=== PATIENT | male | born 1985 | race Caucasian/White ===

== ENCOUNTER 2017-08-09 13:13 | Emergency (ER) | payer SELFPAY ==
[~2017-08-09] VITALS: Ht 188 cm; Wt 100.0 kg
[2017-08-09] MEDS ORDERED: MOTRIN400 MG PO (15:19)
[2017-08-09 15:20] VITALS: BP 153/78
== END 2017-08-09 15:36 | disposition home or self-care (01) | DRG 556 ==
LOC: ED 13:13
PROC: 2W39X1Z Immobilization of Left Upper Extremity using Splint (ICD-10-PCS; principal; 2017-08-09)
DX: M25.522 Pain in left elbow (principal); V18.0XXA Pedal cycle driver injured in noncollision transport accident in nontraffic accident, initial encounter; Y93.55 Activity, bike riding

== ENCOUNTER 2020-03-19 00:39 | Emergency (ER) | payer MEDICAID ==
[~2020-03-19] VITALS: Ht 188 cm; Wt 86.3 kg
[~2020-03-19 00:39] MED LIST: MOTRIN400 MG PO
[2020-03-19] MEDS ORDERED: ULTRAM50 MG PO (02:19)
[2020-03-19 03:00] VITALS: BP 140/74
== END 2020-03-19 03:00 | disposition home or self-care (01) ==
LOC: ED 00:39
DX: S60.812A Abrasion of left wrist, initial encounter (principal); S50.312A Abrasion of left elbow, initial encounter; S00.93XA Contusion of unspecified part of head, initial encounter; F17.200 Nicotine dependence, unspecified, uncomplicated; V13.4XXA Pedal cycle driver injured in collision with car, pick-up truck or van in traffic accident, initial encounter

== ENCOUNTER 2020-08-04 11:08 | Inpatient (IN) | payer MEDICAID ==
[~2020-08-04] VITALS: Ht 188 cm; Wt 99.8 kg
[~2020-08-04 11:08] MED LIST changes: +ULTRAM50 MG PO
[2020-08-04 11:47] LABS: HEMATOCRIT 46.4 % (39.0-50.0); HEMOGLOBIN 14.8 g/dl (14.0-18.0); IMMATURE GRANULOCYTES 0.3 % (0.0-5.0); MEAN CELL VOLUME 92.8 fL CALC (80.0-100.0); MEAN CORPUSCULAR HGB 29.6 pG CALC (26.0-32.0); MEAN CORPUSCULAR HGB CONC 31.9 g/dL CAL (32.0-36.0); NEUT# 6.65 thou/uL (1.82-7.42); RED CELL DISTRI WIDTH 14.6 % (11.5-15.5)
[2020-08-04 12:00] LABS: ALBUMIN 4.4 g/dL (3.2-5.0); ALKALINE PHOSPHATASE 76 u/l (38-126); ANION GAP 13 (6-22 (CALC)); BILIRUBIN, TOTAL 0.4 mg/dL (0.0-1.4); BUN 12 mg/dL (9-20); BUN/CREATININE RATIO 18 (12-20 (CALC)); CARBON DIOXIDE 27 mmol/l (22-30); CHLORIDE 103 mmol/l (95-108); CREATININE 0.7 mg/dL (0.7-1.3); GFR > 60 ML/MIN (>=60 (CALC)); GFR FOR AFR.AMER. > 60 ML/MIN (>=60 (CALC)); POTASSIUM 4.9 mmol/l (3.5-5.1); SGOT/AST 25 u/l (17-59); SODIUM 138 mmol/l (137-146); TOTAL PROTEIN 7.7 g/dL (6.3-8.2)
[2020-08-04 12:07] LABS: ACT PARTIAL THROMBO TIME 26.6 SECONDS (20.0-32.5); PROTHROMBIN TIME 9.7 SECONDS (9.0-12.5)
[2020-08-04] MEDS ORDERED: NEURONTIN100 MG PO (14:18)
[2020-08-04] MEDS ORDERED: SERTRALINE25 MG PO (14:19)
[2020-08-04] MEDS ORDERED: NEURONTIN600 MG PO (14:19)
[2020-08-04] MEDS ORDERED: KLONOPIN0.5 MG PO (14:20)
[2020-08-04 19:05] VITALS: BP 126/72
[2020-08-04 19:32] VITALS: BP 116/66
[2020-08-05] VITALS (10 sets, daily range): BP systolic 117–141; BP diastolic 58–81
[2020-08-05 05:59] LABS: HEMATOCRIT 44.1 % (39.0-50.0); HEMOGLOBIN 13.5 g/dl (14.0-18.0); MEAN CELL VOLUME 95.9 fL CALC (80.0-100.0); MEAN CORPUSCULAR HGB 29.3 pG CALC (26.0-32.0); MEAN CORPUSCULAR HGB CONC 30.6 g/dL CAL (32.0-36.0); RED BLOOD COUNT 4.6 mill/uL (4.70-6.10); RED CELL DISTRI WIDTH 14.6 % (11.5-15.5)
[2020-08-05 06:16] LABS: ANION GAP 15 (6-22 (CALC)); BUN 12 mg/dL (9-20); BUN/CREATININE RATIO 15 (12-20 (CALC)); CALCULATED LDLCHOLESTEROL 59 mg/dL (62-129 (CALC)); CARBON DIOXIDE 24 mmol/l (22-30); CHLORIDE 105 mmol/l (95-108); CHOLESTEROL HDL RATIO 5.6 (<4.4 (CALC)); CREATININE 0.8 mg/dL (0.7-1.3); GFR > 60 ML/MIN (>=60 (CALC)); GFR FOR AFR.AMER. > 60 ML/MIN (>=60 (CALC)); HDL CHOLESTEROL 22 mg/dL (>=40); POTASSIUM 5.1 mmol/l (3.5-5.1); SODIUM 139 mmol/l (137-146); TOTAL CHOLESTEROL 124 mg/dl (0-199); TOTAL TRIGLYCERIDES 215 mg/dl (30-149); VLDL CHOLESTROL 43 mg/dl (5-56 (CALC))
[2020-08-06 04:00] VITALS: BP 114/54
[2020-08-06 06:12] LABS: HEMATOCRIT 42.5 % (39.0-50.0); HEMOGLOBIN 13.4 g/dl (14.0-18.0); MEAN CELL VOLUME 93.8 fL CALC (80.0-100.0); MEAN CORPUSCULAR HGB 29.6 pG CALC (26.0-32.0); MEAN CORPUSCULAR HGB CONC 31.5 g/dL CAL (32.0-36.0); RED BLOOD COUNT 4.53 mill/uL (4.70-6.10); RED CELL DISTRI WIDTH 14.2 % (11.5-15.5)
[2020-08-06 06:48] LABS: ANION GAP 11 (6-22 (CALC)); BUN 14 mg/dL (9-20); BUN/CREATININE RATIO 15 (12-20 (CALC)); CHLORIDE 100 mmol/l (95-108); CREATININE 0.9 mg/dL (0.7-1.3); GFR > 60 ML/MIN (>=60 (CALC)); GFR FOR AFR.AMER. > 60 ML/MIN (>=60 (CALC)); POTASSIUM 4.4 mmol/l (3.5-5.1); SODIUM 136 mmol/l (137-146)
[2020-08-06 06:52] LABS: CARBON DIOXIDE 29 mmol/l (22-30)
[2020-08-06 08:37] VITALS: BP 119/66
[2020-08-06 15:17] VITALS: BP 135/75
[2020-08-06 19:30] VITALS: BP 133/73
[2020-08-07 04:22] VITALS: BP 131/66
[2020-08-07 05:06] LABS: HEMATOCRIT 41.6 % (39.0-50.0); HEMOGLOBIN 13.2 g/dl (14.0-18.0); MEAN CELL VOLUME 92.2 fL CALC (80.0-100.0); MEAN CORPUSCULAR HGB 29.3 pG CALC (26.0-32.0); MEAN CORPUSCULAR HGB CONC 31.7 g/dL CAL (32.0-36.0); RED BLOOD COUNT 4.51 mill/uL (4.70-6.10); RED CELL DISTRI WIDTH 14.3 % (11.5-15.5)
[2020-08-07 05:31] LABS: ANION GAP 12 (6-22 (CALC)); BUN 10 mg/dL (9-20); BUN/CREATININE RATIO 14 (12-20 (CALC)); CARBON DIOXIDE 28 mmol/l (22-30); CHLORIDE 100 mmol/l (95-108); CREATININE 0.7 mg/dL (0.7-1.3); GFR > 60 ML/MIN (>=60 (CALC)); GFR FOR AFR.AMER. > 60 ML/MIN (>=60 (CALC)); POTASSIUM 4.2 mmol/l (3.5-5.1); SODIUM 135 mmol/l (137-146)
[2020-08-07 08:01] VITALS: BP 117/69
[2020-08-07 11:00] VITALS: BP 99/55
[2020-08-07 15:00] VITALS: BP 99/55
[2020-08-07 17:19] VITALS: BP 128/70
[2020-08-07 20:00] VITALS: BP 133/67
[2020-08-08 04:00] VITALS: BP 135/70
[2020-08-08 06:54] VITALS: BP 127/68
[2020-08-08 15:25] VITALS: BP 114/60
[2020-08-08 21:00] VITALS: BP 118/64
[2020-08-09 04:57] VITALS: BP 158/75
[2020-08-09 05:30] LABS: HEMATOCRIT 41.8 % (39.0-50.0); HEMOGLOBIN 13.1 g/dl (14.0-18.0); MEAN CELL VOLUME 93.7 fL CALC (80.0-100.0); MEAN CORPUSCULAR HGB 29.4 pG CALC (26.0-32.0); MEAN CORPUSCULAR HGB CONC 31.3 g/dL CAL (32.0-36.0); RED BLOOD COUNT 4.46 mill/uL (4.70-6.10)
[2020-08-09 05:58] LABS: ANION GAP 12 (6-22 (CALC)); BUN 19 mg/dL (9-20); BUN/CREATININE RATIO 23 (12-20 (CALC)); CARBON DIOXIDE 30 mmol/l (22-30); CHLORIDE 99 mmol/l (95-108); CREATININE 0.8 mg/dL (0.7-1.3); GFR > 60 ML/MIN (>=60 (CALC)); GFR FOR AFR.AMER. > 60 ML/MIN (>=60 (CALC)); POTASSIUM 4.7 mmol/l (3.5-5.1); SODIUM 136 mmol/l (137-146)
[2020-08-09 07:31] VITALS: BP 108/60
[2020-08-09 14:43] VITALS: BP 111/66
[2020-08-09 19:37] VITALS: BP 130/71
[2020-08-10 05:04] VITALS: BP 128/77
[2020-08-10 07:46] VITALS: BP 100/57
[2020-08-10 15:00] VITALS: BP 115/59
[2020-08-10 19:00] VITALS: BP 111/59
[2020-08-11 04:00] VITALS: BP 129/75
[2020-08-11 05:09] LABS: HEMATOCRIT 40.8 % (39.0-50.0); MEAN CELL VOLUME 91.9 fL CALC (80.0-100.0); MEAN CORPUSCULAR HGB 29.3 pG CALC (26.0-32.0); MEAN CORPUSCULAR HGB CONC 31.9 g/dL CAL (32.0-36.0); RED BLOOD COUNT 4.44 mill/uL (4.70-6.10); RED CELL DISTRI WIDTH 13.5 % (11.5-15.5)
[2020-08-11 05:33] LABS: ANION GAP 13 (6-22 (CALC)); BUN 17 mg/dL (9-20); BUN/CREATININE RATIO 23 (12-20 (CALC)); CARBON DIOXIDE 28 mmol/l (22-30); CHLORIDE 100 mmol/l (95-108); CREATININE 0.7 mg/dL (0.7-1.3); GFR > 60 ML/MIN (>=60 (CALC)); GFR FOR AFR.AMER. > 60 ML/MIN (>=60 (CALC)); POTASSIUM 4.4 mmol/l (3.5-5.1); SODIUM 137 mmol/l (137-146)
[2020-08-11 07:27] VITALS: BP 128/70
[2020-08-11] MEDS ORDERED: AMOX/K CLAV875 M1 PO (13:51)
== END 2020-08-11 14:04 | disposition left against medical advice (07) | DRG 571 ==
LOC: ED 11:08 → ED-I 12:45 → ED 12:59 → MS2 13:00
PROVIDERS: Nurse Practitioner; Student in an Organized Health Care Education/Training Program; ADMIT Internal Medicine; ATTEND Internal Medicine
PROC: 0JBP0ZZ Excision of Left Lower Leg Subcutaneous Tissue and Fascia, Open Approach (ICD-10-PCS; principal; 2020-08-04)
PROC: 0JBN0ZZ Excision of Right Lower Leg Subcutaneous Tissue and Fascia, Open Approach (ICD-10-PCS; 2020-08-04)
PROC: 0Y3H0ZZ Control Bleeding in Right Lower Leg, Open Approach (ICD-10-PCS; 2020-08-05)
PROC: 3E02340 Introduction of Influenza Vaccine into Muscle, Percutaneous Approach (ICD-10-PCS; 2020-08-05)
PROC: 3E0234Z Introduction of Serum, Toxoid and Vaccine into Muscle, Percutaneous Approach (ICD-10-PCS; 2020-08-05)
DX: L02.415 Cutaneous abscess of right lower limb (principal); L76.21 Postprocedural hemorrhage of skin and subcutaneous tissue following a dermatologic procedure; L03.115 Cellulitis of right lower limb; L02.416 Cutaneous abscess of left lower limb; F15.10 Other stimulant abuse, uncomplicated; F31.9 Bipolar disorder, unspecified; G62.9 Polyneuropathy, unspecified; F20.9 Schizophrenia, unspecified; M54.9 Dorsalgia, unspecified; G89.29 Other chronic pain; F17.210 Nicotine dependence, cigarettes, uncomplicated; B96.89 Other specified bacterial agents as the cause of diseases classified elsewhere; B95.61 Methicillin susceptible Staphylococcus aureus infection as the cause of diseases classified elsewhere; Y83.8 Other surgical procedures as the cause of abnormal reaction of the patient, or of later complication, without mention of misadventure at the time of the procedure; Z23 Encounter for immunization; Z20.822 Contact with and (suspected) exposure to COVID-19
CPT/HCPCS: J1650; J3370; Q3014

== ENCOUNTER 2020-09-07 01:54 | Observation (INO) | payer MEDICAID ==
[~2020-09-07] VITALS: Ht 188 cm; Wt 81.0 kg
[~2020-09-07 01:54] MED LIST changes: +AMOX/K CLAV875 M1 PO; +KLONOPIN0.5 MG PO; +NEURONTIN100 MG PO; +NEURONTIN600 MG PO; +SERTRALINE25 MG PO
--- NOTE | 2020-09-07 01:56 | NUR ---
ARRIVED VIA [facility] WITH LARGE BACKPACK. [place] WRAP/DRESSING TO RIGHT LOWER LEG. RIGHT MEDIAL LOWER LEG HAS A 1 1/2 X 4 INCH GRANULATED AREA WITH FRESH TISSUE. ON BACK OF LEG LEG AND SMALLER AREA OF GRANULATION OF 1X1 INCH. HAS SEVERAL OTHER SMALL AREAS OF WHAT APPEARS TO BE OLD HEALED LAZAR.
[2020-09-07 02:29] LABS: HEMATOCRIT 40.6 % (39.0-50.0); IMMATURE GRANULOCYTES 0.3 % (0.0-5.0); MEAN CELL VOLUME 91.9 fL CALC (80.0-100.0); MEAN CORPUSCULAR HGB 29.4 pG CALC (26.0-32.0); NEUT# 7.19 thou/uL (1.82-7.42); RED BLOOD COUNT 4.42 mill/uL (4.70-6.10); RED CELL DISTRI WIDTH 14.4 % (11.5-15.5)
--- NOTE | 2020-09-07 02:42 | NUR ---
PT MEDICATED ORDERED, PT IS ALERT AND ORIENTED BUT AT TIMES COMMENTS DON'T MAKE SENSE TO CONVERSATION AT [facility] AND WHEN QUESTINED PT CORRECTS HIMSELF, ADMITS TO LAST ESQUIVEL STATES ITS BEEN A FEW DAYS DOES HAVE WOUNDS TO BILATERAL POSTERIOR CALVES WITH GOOD GRANULATION TISSUE AND CLEAN MARGINS, NO S/S OF INFECTION, CALL [facility] WITHIN REACH AND PT AWARE OF NEED FOR URINE SPECIMEN
[2020-09-07 02:46] LABS: PROTHROMBIN TIME 10.6 SECONDS (9.0-12.5)
[2020-09-07 02:47] LABS: ALBUMIN 4.6 g/dL (3.2-5.0); ALKALINE PHOSPHATASE 67 u/l (38-126); ANION GAP 13 (6-22 (CALC)); BUN 10 mg/dL (9-20); BUN/CREATININE RATIO 15 (12-20 (CALC)); CARBON DIOXIDE 25 mmol/l (22-30); CHLORIDE 103 mmol/l (95-108); CREATININE 0.7 mg/dL (0.7-1.3); GFR > 60 ML/MIN (>=60 (CALC)); GFR FOR AFR.AMER. > 60 ML/MIN (>=60 (CALC)); SODIUM 136 mmol/l (137-146); TOTAL PROTEIN 8.1 g/dL (6.3-8.2)
[2020-09-07 02:55] LABS: SGOT/AST 51 u/l (17-59)
--- NOTE | 2020-09-07 03:51 | NUR ---
PT RESTING PROVIDED URINE SPECIMEN AWARE OF AWAITING RESULTS, ORANGE JUICE PROVIDED, PT PLEASANT AND COOPERATIVE BUT CONTINUES TO TALK IN CIRCLES AND SOME REPSONSE MAKE NO SENSE.
[2020-09-07 04:16] LABS: URINE BILIRUBIN - DIPSTICK NEGATIVE (NEGATIVE); URINE BLOOD DIPSTICK NEGATIVE (NEGATIVE); URINE COLOR YELLOW; URINE GLUCOSE - DIPSTICK NEGATIVE (NEGATIVE); URINE KETONE NEGATIVE (NEGATIVE); URINE LEUK ESTERASE NEGATIVE (NEGATIVE); URINE NITRITE - DIPSTICK NEGATIVE (Negative); URINE PROTEIN - DIPSTICK NEGATIVE (NEG-TRACE); URINE SPECIFIC GRAVITY <=1.005; URINE UROBILINOGEN - DIPSTICK 0.2 E.U./dL (0.2)
--- NOTE | 2020-09-07 04:50 | NUR ---
PT OOB TO USE URINAL REMOVED TELEMETRY LEADS REQUESTING TO NOT HAVE THEM BACK ON
--- NOTE | 2020-09-07 05:14 | NUR ---
PT CONTINES TO TALK ABOUT HOW HE FEELS LIKE WE ARE HELPING HIM AND THAT HE FEELS LIKE HE IS HAVING A PANIC ATTAK ETC... NOTIIED.
--- NOTE | 2020-09-07 05:28 | NUR ---
MEDICATED FOR ANXIETY ORDERED.
--- NOTE | 2020-09-07 07:20 | NUR ---
REPORT TAKEN FROM PRO
--- NOTE | 2020-09-07 09:15 | NUR ---
Reassessment of patient completed. No distress noted.
--- NOTE | 2020-09-07 10:06 | NUR ---
WITH DR FOR THE FLOOR ROUNDING
[2020-09-07 10:24] VITALS: BP 141/67
[2020-09-07] MEDS ORDERED: TRILEPTAL150 MG PO ×2 (10:26→10:35)
[2020-09-07] MEDS ORDERED: SERTRALINE HCL25 MG PO ×2 (10:26→10:35)
[2020-09-07] MEDS ORDERED: GABAPENTIN100 MG PO (10:26)
--- NOTE | 2020-09-07 10:44 | NUR ---
Discharge instructions given. Patient verbalizes understanding of same. Discharged in stable condition via Ambulatory to Home with family. All belongings sent with pt.
[2020-09-07 10:45] VITALS: BP 141/67
--- NOTE | 2020-09-07 10:45 | NUR ---
Discharged to: Home Discharged via: Ambulatory Accompanied by: family D/C Condition: stable Diet: 2 gm sodium Diet modification: no added salt Activity: As tolerated Home Health: NONE Follow up appointment: Special instructions: Medications: SEE MEDICATION RECONCILIATION FORM Prescriptions Given: Please notify your physician if you received either one of these vaccinations: Influenza Vaccine - Date: Pneumococcal Vaccine - Date: Patient Education Materials Provided: - Food and Drug Interaction Guide - Anticoagulation Education Booklet Contains the following information: 1. Compliance issues 2. Dietary advice 3. Follow up monitoring 4. Potential for adverse drug reactions and interactions - Smoking Cessation Booklet IF SYMPTOMS WORSEN, OR IF YOU HAVE ADDITIONAL QUESTIONS, PLEASE CONTACT YOUR PERSONAL PHYSICIAN OR SEEK EMERGENCY CARE. CALL YOUR PHYSICIAN IF YOU DO NOT GET RELIEF FROM THE PAIN MEDICATIONS PRESCRIBED, OR IF THE INTENSITY OF PAIN INCREASES, OR IF PAIN IS INTERFERING WITH ACTIVITY OR REST. IF YOU SMOKE, YOU NEED TO QUIT. IT IS GOOD FOR YOU AND EVERYONE AROUND YOU! Your physician and [facility] care about you and your health. The facts are clear. Smoking causes 1 out of 5 deaths in the [place] each year. It is the major preventable cause of emphysema, lung cancer, chronic bronchitis, heart disease and stroke. Quitting is one of the best things you can ever do for yourself and those you love. What better time to quit than now! You've already been cigarette free during your stay. Studies have shown that the first 48 hours of quitting are the toughest. Just a few of the benefits your body begins to experience are blood pressure returns to normal, the carbon monoxide level in your blood drops to normal, your chance of heart attack decreases, and your ability to smell and taste is enhanced. Here are some resources that you may find helpful: [employer] www.lungusa.org www.cancer.org [place] [employer] [place] Department of Health (Tobacco Prevention and Control Program) www.americanheart.org www.[place] Finally don't forget that your doctor may be able to help you. Whichever method you choose will be good for you. IF YOU HAVE A DIAGNOSIS OF CONGESTIVE HEART FAILURE, THERE ARE SEVERAL ADDITIONAL INSTRUCTIONS FOR YOU TO FOLLOW UPON DISCHARGE FROM THE HOSPITAL. Weigh yourself every day and if weight gain is greater than 2 pounds in a day, call your physican. If you experience worsening symptoms such as: Problems with breathing or shortness of breath Ankle/foot/leg swelling Unexplained weight gain greater than 2 pounds Call your physician or come to the emergency room. IF YOU HAVE A DIAGNOSIS OF STROKE, THERE ARE SEVERAL ADDITIONAL INSTRUCTIONS FOR YOU TO FOLLOW: A stroke occurs when something happens to interrupt the steady flow of blood to the brain, like a clot or a burst in a blood vessel. Brain cells quickly begin to . These INCREASE your chance of having a STROKE: * Smoking * High blood pressure * Diabetes * Obesity WARNING SIGNS OR SYMPTOMS: * Sudden weakness on one side of body. * Sudden confusion, trouble speaking or understanding. * Sudden trouble seeing. * Sudden trouble walking or loss of balance. * Sudden severe headache with no known cause. CALL At Any Sign of Stroke. You can beat a stroke. Disabilities can be prevented or limited, but you have must go to the Emergency Department immediately. Go in an Ambulance. Save Time. Be Seen Faster! If you were admitted to the hospital for a stroke After DISCHARGE you must: * Keep ALL follow up appointments. * Take your medications as ordered by your doctor. * Do not take any other drugs without checking with your doctor first. * Do not drive unless your doctor says it is okay. * Call your doctor with any questions or concerns. IF YOU WERE DISCHARGED ON COUMADIN/WARFARIN ANTICOAGULATION THERAPY, THERE ARE SEVERAL ADDITIONAL INSTRUCTIONS FOR YOU TO FOLLOW: Anticoagulants are medications that help prevent blood clots. They are often prescribed for people with certain heart, lung and blood vessel diseases to help prevent heart attacks and strokes. IMPORTANT Anticoagulation medications have been used for many years, but it can be difficult to manage. That's because many factors can affect how they work-including small changes in dose or dose timing, what you eat or drink, other medications and stress. You and your doctor must work closely together to manage this important medication. * Take your medicine EXACTLY as instructed by your doctor. * You must have your blood drawn for PT/INR to monitor your medication. * Do not take any new medications, vitamins or herbal supplements without asking your doctor first. FOODS: * Eat the same amount of foods that contain Vitamin K every day. * Avoid or limit alcohol. * Avoid major changes in diet or notify your doctor first. FOLLOW UP MONITORING: See your physician within one week to monitor your condition. You will need to have blood tests performed to monitor the medication. DRUG INTERACTIONS: * Diet and medications can affect the PT/INR level. * Do not take or discontinue any medication or over the counter medication unless your doctor okays. * Warfarin/Coumadin increases the risk of bleeding. CALL YOUR PHYSICIAN IF: If you notice any signs of increased bleedin. Excessive bruising. 2. Abnormal bleeding from nose or gums. 3. [place], red or dark brown urine. 4. Minor bleeding or bright red blood from the bowel. CALL 911 OR GO TO THE HOSPITAL IF: 1. You have black tarry stools. 2. Sudden dizziness, faintness or weakness. 3. Cold or numbness in arm or leg. 4. Sudden chest pain. 5. Trouble talking or moving one side of body. 6. Coughing or vomiting bright red blood. 7. Severe headache or stomach pain. 8. Serious fall or hit to the head. Visit our website at [email or web address] You are going home today. Depending on your insurance coverage, you may be receiving a bill from the hospital for your hospital stay. If you have any question about your bill, please call the Business Office at [phone] or contact us at our web address: [email or web address]. If applicable, I have received my medication information as recommeded by my provider upon discharge. I have read and understand the above discharge instructions. Pt Signature: Date: Time: Witnessed by: Date: Time: Complete the record of communication to the next provider below. These discharge instructions, including discharge medications, is to be faxed to the next provider at the time of the patient's discharge. ____These instructions faxed to next Provider (Provider Name) on (Date) @ (Time) . ____The second provider involved in patient care following discharge has been faxed this information. These instructions faxed to (Provider-Home Health, Physical Therapy, Agency) on (Date) @ (Time) . OR ____Patient unable/unwilling to verbalize who the next provider of care will be, instructed patient to take these instructions to next appointment with healthcare provider.
== END 2020-09-07 10:45 | disposition home or self-care (01) | DRG 313 ==
LOC: ED 01:54 → ED-I 05:16 → ED 05:33 → ED-I 05:34
PROVIDERS: Emergency Medicine; ADMIT Internal Medicine; ATTEND Internal Medicine
DX: R07.9 Chest pain, unspecified (principal); F41.9 Anxiety disorder, unspecified; L97.229 Non-pressure chronic ulcer of left calf with unspecified severity; L97.219 Non-pressure chronic ulcer of right calf with unspecified severity; F20.9 Schizophrenia, unspecified; F31.9 Bipolar disorder, unspecified; G62.9 Polyneuropathy, unspecified; F17.200 Nicotine dependence, unspecified, uncomplicated; F15.10 Other stimulant abuse, uncomplicated; M54.9 Dorsalgia, unspecified; G89.29 Other chronic pain; Z20.822 Contact with and (suspected) exposure to COVID-19
CPT/HCPCS: J2060

== ENCOUNTER 2022-05-25 14:21 | Emergency (ER) | payer OTHER ==
[~2022-05-25] VITALS: Ht 188 cm; Wt 109.1 kg
[2022-05-25] VITALS (12 sets, daily range): BP systolic 85–141; BP diastolic 53–90
[~2022-05-25 14:21] MED LIST changes: +GABAPENTIN100 MG PO; +KLONOPIN1 MG PO; +NEURONTIN300 MG PO; +SERTRALINE HCL25 MG PO; +TRILEPTAL150 MG PO; +VENTOLIN HFA IN; +VIBRAMYCIN100 M2 PO
[2022-05-25] MEDS ORDERED: KEFLEX500 MG PO (17:21)
== END 2022-05-25 18:00 | disposition home or self-care (01) | DRG 605 ==
LOC: ED 14:21
DX: S51.812A Laceration without foreign body of left forearm, initial encounter (principal); V13.4XXA Pedal cycle driver injured in collision with car, pick-up truck or van in traffic accident, initial encounter

== ENCOUNTER 2022-06-14 12:20 | Emergency (ER) | payer OTHER ==
[~2022-06-14] VITALS: Ht 188 cm; Wt 100.0 kg
[~2022-06-14 12:20] MED LIST changes: +KEFLEX500 MG PO
[2022-06-14 12:55] VITALS: BP 147/92
== END 2022-06-14 12:57 | disposition home or self-care (01) | DRG 951 ==
LOC: ED 12:20
DX: Z48.02 Encounter for removal of sutures (principal); F31.9 Bipolar disorder, unspecified; F20.9 Schizophrenia, unspecified

== ENCOUNTER 2022-07-20 17:13 | Emergency (ER) | payer OTHER ==
[~2022-07-20] VITALS: Ht 188 cm; Wt 97.2 kg
[2022-07-20] VITALS (10 sets, daily range): BP systolic 114–136; BP diastolic 75–90
[2022-07-20] MEDS ORDERED: FIORICET PO (19:23)
== END 2022-07-20 19:35 | disposition home or self-care (01) ==
LOC: ED 17:13
DX: R51.9 Headache, unspecified (principal); F31.9 Bipolar disorder, unspecified; G62.9 Polyneuropathy, unspecified; F17.200 Nicotine dependence, unspecified, uncomplicated

== ENCOUNTER 2022-08-16 07:48 | Emergency (ER) | payer OTHER ==
[~2022-08-16] VITALS: Ht 188 cm; Wt 95.4 kg
[~2022-08-16 07:48] MED LIST changes: +FIORICET PO
[2022-08-16] MEDS ORDERED: DOXEPIN HCL25 MG PO (07:58)
[2022-08-16] MEDS ORDERED: SERTRALINE25 MG PO (07:59)
[2022-08-16] MEDS ORDERED: CLONAZEPAM0.5 M1 PO (07:59)
[2022-08-16] MEDS ORDERED: GABAPENTIN800 MG PO (07:59)
[2022-08-16] MEDS ORDERED: VENTOLIN HFA108 MCG (08:00)
[2022-08-16] MEDS ORDERED: IMITREX100 MG PO (08:00)
[2022-08-16 08:57] LABS: BASO% 0.5 % (0-3); EOS% 2.1 % (0-8); HEMOGLOBIN 15.1 g/dl (14.0-18.0); IMMATURE GRANULOCYTES 0.4 % (0.0-5.0); LYMPH% 39.4 % (15-41); MEAN CELL VOLUME 97.4 fL CALC (80.0-100.0); MEAN CORPUSCULAR HGB 30.6 pG CALC (26.0-32.0); MEAN CORPUSCULAR HGB CONC 31.5 g/dL CAL (32.0-36.0); MONO% 8.1 % (2-13); NEUT# 5.51 thou/uL (1.82-7.42); NEUT% 49.5 % (42-76); RED BLOOD COUNT 4.93 mill/uL (4.70-6.10); RED CELL DISTRI WIDTH 14.2 % (11.5-15.5)
[2022-08-16 08:58] LABS: ALBUMIN 4.4 g/dL (3.2-5.0); ALKALINE PHOSPHATASE 66 u/l (38-126); ANION GAP 8 (6-22 (CALC)); BUN 13 mg/dL (9-20); BUN/CREATININE RATIO 18 (12-20 (CALC)); CARBON DIOXIDE 34 mmol/l (22-30); CHLORIDE 103 mmol/l (95-108); CREATININE 0.8 mg/dL (0.7-1.3); GFR FOR AFR.AMER. > 60 ML/MIN (>=60 (CALC)); GFR OTHER RACES > 60 ML/MIN (>=60 (CALC)); SGOT/AST 29 u/l (17-59); SODIUM 141 mmol/l (137-146); TOTAL PROTEIN 7.1 g/dL (6.3-8.2)
[2022-08-16 08:59] LABS: BILIRUBIN, TOTAL 0.2 mg/dL (0.2-1.3)
[2022-08-16 10:23] VITALS: BP 131/78
== END 2022-08-16 10:25 | disposition home or self-care (01) ==
LOC: ED 07:48
PROVIDERS: Family Medicine
DX: G43.909 Migraine, unspecified, not intractable, without status migrainosus (principal); F31.9 Bipolar disorder, unspecified; G62.9 Polyneuropathy, unspecified; F17.210 Nicotine dependence, cigarettes, uncomplicated; Z87.820 Personal history of traumatic brain injury; Z20.822 Contact with and (suspected) exposure to COVID-19

== ENCOUNTER 2023-07-10 22:40 | Emergency (ER) | payer OTHER ==
[~2023-07-10] VITALS: Ht 188 cm; Wt 97.5 kg
[~2023-07-10 22:40] MED LIST changes: +CLONAZEPAM0.5 M1 PO; +DOXEPIN HCL25 MG PO; +GABAPENTIN800 MG PO; +IMITREX100 MG PO; +VENTOLIN HFA108 MCG
[2023-07-10 23:00] VITALS: BP 154/98
[2023-07-10 23:15] VITALS: BP 141/79
[2023-07-10 23:15] LABS: BASO% 0.3 % (0-3); EOS% 0.5 % (0-8); HEMATOCRIT 41.1 % (39.0-50.0); HEMOGLOBIN 13.7 g/dl (14.0-18.0); IMMATURE GRANULOCYTES 0.2 % (0.0-5.0); LYMPH% 9.4 % (15-41); MEAN CORPUSCULAR HGB CONC 33.3 g/dL CAL (32.0-36.0); MONO% 9.8 % (2-13); NEUT# 15.9 thou/uL (1.82-7.42); NEUT% 79.8 % (42-76); RED BLOOD COUNT 4.42 mill/uL (4.70-6.10); RED CELL DISTRI WIDTH 14.9 % (11.5-15.5)
[2023-07-10 23:27] LABS: ALBUMIN 4.8 g/dL (3.2-5.0); ALKALINE PHOSPHATASE 68 u/l (38-126); BUN 15 mg/dL (9-20); BUN/CREATININE RATIO 15 (12-20 (CALC)); CHLORIDE 105 mmol/l (95-108); ETHYL ALCOHOL 0 mg/dl (0-30); GFR FOR AFR.AMER. > 60 ML/MIN (>=60 (CALC)); GFR OTHER RACES > 60 ML/MIN (>=60 (CALC)); POTASSIUM 3.9 mmol/l (3.5-5.1); SGOT/AST 36 u/l (17-59); SODIUM 141 mmol/l (137-146); TOTAL PROTEIN 7.6 g/dL (6.3-8.2)
[2023-07-10 23:29] LABS: ANION GAP 13 (6-22 (CALC)); BILIRUBIN, TOTAL 0.9 mg/dL (0.2-1.3); CARBON DIOXIDE 27 mmol/l (22-30)
[2023-07-10 23:30] VITALS: BP 130/89
[2023-07-10 23:45] VITALS: BP 148/82
[2023-07-10 23:56] LABS: URINE BLOOD DIPSTICK Negative (NEGATIVE); URINE GLUCOSE - DIPSTICK Negative (NEGATIVE); URINE KETONE Trace mg/dL (NEGATIVE); URINE LEUK ESTERASE Negative (NEGATIVE); URINE NITRITE - DIPSTICK Negative (Negative); URINE PROTEIN - DIPSTICK 30 mg/dL (NEG-TRACE); URINE SPECIFIC GRAVITY 1.025; URINE UROBILINOGEN - DIPSTICK 0.2 E.U./dL (0.2)
[2023-07-10 23:57] LABS: URINE COLOR Yellow
[2023-07-11] VITALS (32 sets, daily range): BP systolic 94–148; BP diastolic 54–91
[2023-07-11 00:01] LABS: URINE BACTERIA FEW hpf; URINE EPITHELIAL CELLS FEW EPI/hpf (0-FEW); URINE MUCUS MODERATE hpf (NONE-FEW)
[2023-07-11] MEDS ORDERED: ATIVAN1 M1 PO (07:55)
[2023-07-11] MEDS ORDERED: GABAPENTIN300 M2 PO (07:57)
== END 2023-07-11 08:09 | disposition home or self-care (01) ==
LOC: ED 22:40
PROVIDERS: Family Medicine
DX: T50.911A Poisoning by multiple unspecified drugs, medicaments and biological substances, accidental (unintentional), initial encounter (principal); R40.4 Transient alteration of awareness; F15.10 Other stimulant abuse, uncomplicated; F31.9 Bipolar disorder, unspecified; G62.9 Polyneuropathy, unspecified; F20.9 Schizophrenia, unspecified; Z72.0 Tobacco use